=== PATIENT | female | born 1940 ===

== ENCOUNTER 2020-05-13 18:49 | Observation (INO) | payer MEDICARE, MEDICAID, SELFPAY ==
[2020-05-13] VITALS (12 sets, daily range): BP systolic 102–136; BP diastolic 44–106; PULSE 62–101; RESP 13–24; TEMP 35.7–37.3; O2SAT 93–96; BMI 41.7
--- NOTE | ~2020-05-13 | CT_ITS ---
EXAMINATION: CT chst ab pel madie mak wo DATE: 05/13/2020 20:39 INDICATION: Back pain, nausea and vomiting TECHNIQUE: Computed tomography (CT) of the chest, abdomen, and pelvis was performed without intraveno us contrast. The dose-length product was 1727.05 mGy-cm. COMPARISON: 07/31/2009 FINDINGS: CHEST CT: Mild respiratory motion and mild discoid atelectasis in the bilateral lower lobes. No pneumonia, pulm onary edema, pleural effusion or pneumothorax. Heart size is normal. Minimal pericardial effusion. De nse mitral annular calcification. Atherosclerotic coronary artery calcifications. Thoracic aorta is n ormal in caliber. No pathologically enlarged thoracic lymphadenopathy. Advanced right glenohumeral os teoarthritis. Severe cervical spondylosis. ABDOMEN/PELVIS CT: Small to moderate amount of ascites about the liver, spleen, right paracolic gutter and pelvis. Liver , gallbladder, spleen, pancreas, bilateral adrenal glands are normal. Mild bilateral renal atrophy wh ich may be related to age. Nonspecific small amount of fluid in the jejunum which could be seen with enteritis. No bowel obstruction or abnormal bowel wall thickening. Tip of a Colbert catheter is barely within the decompressed bladder. The uterus is not identified and has likely been surgically resected . No free intraperitoneal gas. No pathologically enlarged abdominal or pelvic lymphadenopathy. Mild b ilateral hip and moderate bilateral sacroiliac osteoarthritis. THORACIC AND LUMBAR SPINE: Mild upper thoracic levocurvature and mild kyphosis. Chronic mild anterior wedging at T7. No acute fr acture. Severe disc height loss at T7-T8, T10-T11 and T11-T12 and moderate disc height loss at the re maining thoracic levels. Posterior endplate osteophytes and ossification of the posterior longitudina l ligament at T7-T8 and T8-T9 resulting in mild central canal stenosis the former and moderate at the latter. There are bridging osteophytes at multiple levels in the thoracic spine consistent with diff use idiopathic skeletal hyperostosis (DISH). Multilevel moderate to severe bilateral thoracic facet o steoarthritis resulting in mild bilateral neural foraminal stenosis at the majority of the thoracic l evels. Mild lumbar dextroscoliosis. 4 mm anterolisthesis L4 on L5 and 4 mm retrolisthesis L5 on S1. Anterior spinal fusion at L3-L4. Remaining lumbar vertebral body heights are normal. Mild disc height loss at T12-L1. Moderate disc height loss at L4-L5 and severe disc height loss at L1-L2, L2-L3 and L5-S1. Mu ltilevel central canal stenosis resulting from combination of disc bulges and disc osteophyte complex es as well as multilevel severe hypertrophic facet osteoarthritis throughout the lumbar spine. The ce ntral canal stenosis is moderate to severe at L1-L2 and L4-L5, moderate at L2-L3 and L3-L4 and mild a t L5-S1. There is moderate neural foraminal stenosis on the throughout the left side of the lumbar sp ine and on the right at all but L2-L3. Chronic lucent likely hemangiomas at L3 and L4. IMPRESSION: 1. No acute cardiopulmonary disease. 2. Nonspecific small to moderate amount of ascites in the abdomen and pelvis which is of indeterminat e etiology. 3. Fluid in the nondilated jejunum. Correlate clinically for possible enteritis. 4. Severe cervical, thoracic and lumbar spondylosis. No acute spinal osseous abnormality. Reviewed, dictated and finalized at location H. AND GAS PRINCIPAL IMPRESSION: 1. No acute cardiopulmonary disease. 2. Nonspecific small to moderate amount of ascites in the abdomen and pelvis wh ich is of indeterminate etiology. 3. Fluid in the nondilated jejunum. Correlate clinically for possible enteritis . 4. Severe cervical, thoracic and lumbar spondylosis. No acute spinal osseous ab normality.
--- NOTE | 2020-05-13 19:19 | ECG_ITS ---
Measurements Intervals [employer] Rate: 66 P: 87 MI: 191 QRS: 64 QRSD: 85 T: 67 QT: 456 QTc: 478 Interpretive Statements SINUS RHYTHM BASELINE ARTIFACT- I, II, III, AVR, AVL, V3-V6 NORMAL ECG Electronically Signed On 05-14-2020 8:38:13 [employer]SWING OPERATOR by Edu Caldwell D.O.
--- NOTE | 2020-05-13 19:21 | ED.BACK ---
HPI - Back Pain/Injury General Chief Complaint: Back Pain/Injury Stated Complaint: back pain Time Seen by Provider: 05/13/20 19:16 History of Present Illness HPI Narrative: History limited by dementia 79 yo female w/ multiple medical problems presents to the ED for back pain and vomiting. She says that her back has been hurting all week. Unable to localize or provide details of the pain. Vomited once during transport. Initial BP for EMS was in the 80s systolic. Normal after 400 ml NS. She apparently tested positive for COVID-19 at some point, unclear when. Related Data Allergies Allergy/AdvReac Type Severity Reaction Status Date / Time Sulfa (Sulfonamide Allergy Unknown Verified 02/27/19 09:02 Antibiotics) Review of Systems Review of Systems: ROS unobtainable: Yes unobtainable due to mental status PMFSH Past Medical History Medical History (Updated 05/13/20 @ 22:17 by Guillaume Rashid MD) Dementia Diabetes Social History Social History (Updated 05/13/20 @ 22:17 by Guillaume Rashid MD) Living arrangements: detention Exam Const: General: alert, confusion and ill appearing Nutritional Appearance: obese Other: mild distress HENMT: Head: normal to inspection Resp: Effort & Inspection: normal respiratory effort Auscultation: clear to auscultation bilaterally Cardio: Rate: regular rate Rhythm: regular rhythm GI: Inspection: distended Other: diffuse tenderness Skin: General skin exam: normal color Neuro: General: moves all extremities Speech: normal speech Extrem: General: edema bilateral Course Vital Signs Vital signs: Vital Signs Pulse Rate 62 05/13/20 18:55 Respiratory Rate 20 05/13/20 18:55 Blood Pressure 112/53 L 05/13/20 18:55 Pulse Oximetry 93 05/13/20 18:55 Temperature 37.3 C 05/13/20 22:11 Pulse Rate 87 05/13/20 22:11 Respiratory Rate 14 05/13/20 22:11 Blood Pressure 105/55 L 05/13/20 22:11 Pulse Oximetry 94 05/13/20 22:11 MDM - Back Pain/Injury MDM Narrative Medical decision making narrative: UA consistent with infection. Given clinical presentation I believe that it is most likely pyelonephritis despite lack of findings on non-contrast CT. can't rule out colitis, so I will broaden antibiotic coverage to include GI infection. Differential Diagnosis Differential diagnosis: Likely pyelonephritis and other (aortic aneurys, spinal injury, kidney stone) Medical Records Attestation: I reviewed the patient's medical records. Lab Data Attestation: I reviewed the patient's lab results. Result diagrams: 05/13/20 19:26 05/13/20 19:26 Labs: Lab Results 05/13/20 05/13/20 05/13/20 Range/Units 19:26 19:26 20:08 WBC 19.8 H (4.5-10.0) K/mm3 RBC 5.26 (4.2-5.4) M/mm3 Hgb 14.7 (12.0-15.0) g/dL Hct 43.6 (37.0-47.0) % MCV 82.9 (80-100) fl MCH 27.9 (26-34) pg MCHC 33.7 (32-36) g/dl RDW 13.1 (11.5-14.5) % Plt Count 576 H (150-375) k/mm3 MPV 9.7 (7.4-10.4) fl Immature Gran % (Auto) 0.6 H (0-0.5) % Neut % (Auto) 88.3 H (45.5-73.1) % Lymph % (Auto) 4.3 L (18.3-44.2) % Coffee % (Auto) 5.3 (2.6-8.5) % Eos % (Auto) 1.1 (0-4.4) % Baso % (Auto) 0.4 (0.2-1.2) % Lymph # (Auto) 0.85 L (0.9-3.2) K/mm3 Coffee # (Auto) 1.0 H (0.1-0.6) K/mm3 Eos # (Auto) 0.2 (0-0.3) K/mm3 Baso # (Auto) 0.1 (0.0-0.1) K/mm3 Abs Immat Gran (auto) 0.11 H (0.00-0.031) K/mm3 Absolute Neuts (auto) 17.5 H (1.3-6.7) K/mm3 Absolute Nucleated RBC 0.0 (0.0-0.012) K/mm3 Nucleated RBC % 0.0 (0.0-0.2) % Sodium 131 L (137-145) mmol/L Potassium 5.0 (3.4-5.0) mmol/L Chloride 95 L (98-107) mmol/L Carbon Dioxide 21 L (22-30) mmol/L Anion Gap 15 (8-16) mmol/L BUN 53 H (7-17) mg/dL Creatinine 1.70 H (0.7-1.0) mg/dL Estim Creat Clear Calc 29 ml/min Estimated GFR 29 L (59 - ) Glucose 228 H (65-105) mg/dL
[2020-05-13 19:33] LABS: Basophils Absolute Auto 0.1 K/mm3 (0.0-0.1); Basophils Percent Auto 0.4 % (0.2-1.2); Eosinophils Absolute Auto 0.2 K/mm3 (0-0.3); Eosinophils Percent Auto 1.1 % (0-4.4); Hematocrit 43.6 % (37.0-47.0); Hemoglobin 14.7 g/dL (12.0-15.0); Immature Granulocyte Absolute 0.11 K/mm3 (0.00-0.031); Immature Granulocyte Percent A 0.6 % (0-0.5); Lymphocytes Absolute Auto 0.85 K/mm3 (0.9-3.2); Lymphocytes Percent Auto 4.3 % (18.3-44.2); Mean Corpuscular HGB Conc 33.7 g/dl (32-36); Mean Corpuscular Hemoglobin 27.9 pg (26-34); Mean Corpuscular Volume 82.9 fl (80-100); Mean Platelet Volume 9.7 fl (7.4-10.4); Monocytes Percent Auto 5.3 % (2.6-8.5); Neutrophils Absolute Auto 17.5 K/mm3 (1.3-6.7); Neutrophils Percent Auto 88.3 % (45.5-73.1); Platelet Count Result 576 k/mm3 (150-375); Red Blood Count 5.26 M/mm3 (4.2-5.4); Red Cell Distribution Width 13.1 % (11.5-14.5); White Blood Count 19.8 K/mm3 (4.5-10.0)
[2020-05-13 19:45] LABS: Alanine Aminotransferase 21 U/L (4-35); Alkaline Phosphatase 64 U/L (38-126); Anion Gap 15 mmol/L (8-16); Aspartate Amino Transferase 24 U/L (14-36); Blood Urea Nitrogen 53 mg/dL (7-17); Calcium 9.3 mg/dL (8.4-10.2); Carbon Dioxide 21 mmol/L (22-30); Chloride 95 mmol/L (98-107); Estimated CRCL calculation 29 ml/min; Estimated Glomerular Filt Rate 29; Glucose 228 mg/dL (65-105); Lipase 815 U/L (23-300); Sodium 131 mmol/L (137-145)
[2020-05-13] MEDS: fentaNYL CITRATE INJ (*CRX) 100 MCG/2 ML VIAL 50 MCG IV PUSH (19:51)
[2020-05-13 20:21] LABS: Add Urine Microscopic? YES; Appearance Urine Cloudy (Clear); Bacteria Urine Trace /hpf; Bilirubin Urine Negative (Negative); Blood Urine Negative (Negative); Color Urine Yellow (Yellow); Glucose Urine UA Negative (Negative); Ketones Urine Negative (Negative); Leukocyte Esterase Ur 2+ LEU/UL (Negative); Mucus Urine Rare /lpf; Nitrate Urine Negative (Negative); Protein Urine 1+ mg/dL (Negative); RBC Urine 0-2 /hpf (0-2); Specific Grav Ur 1.012 (1.001-1.035); Squamous Epithelial Cell Urine Rare /hpf (Few); Urobilinogen Urine Negative mg/dL (<2.0); WBC Urine >75 /hpf
--- NOTE | 2020-05-13 20:34 | PC.NURSE ---
Report from ANNABELLE Vergara received. Patient currently in radiology.
[2020-05-13] MEDS: MORPHINE SULFATE (*CRX) 4 MG/ML INJ IV PUSH (21:31)
[2020-05-13 22:14] LABS: Lactic Acid Reflex 4.6 mmol/L (0.7-2.1)
[2020-05-13] MEDS: SODIUM CHLORIDE 0.9% IV 1,000 ML 999 ML IV CONT (22:24)
--- NOTE | 2020-05-13 23:15 | ADMGEN ---
This patient, Elizabeth Giron, was admitted to 2 Medical Room 259-. Patient/family oriented to hospital policies and general routines including ID bracelet, bed and alarms, visiting hours, pain management, procedures, bathroom and other care routines, personal items, smoking policy, room service/diet, and visiting hours. Information on how to activate the Rapid Response Team has been discussed. Patient/Family are encouraged to report perceived risks to care and to ask questions if they do not understand what they are told or what they should do.
[2020-05-13] MEDS: LACTATED RINGERS 1,000 ML 75 ML IV CONT (23:32)
--- NOTE | 2020-05-13 23:50 | PM.IMHP ---
H&P: HPI History of Present Illness Date/Time: 05/13/20 23:50 Chief complaint: severe back pain++ Narrative: This is a pleasant 79-year-old obese Diabetic female who recently had jenkins virus and now presented to our hospital today with a complaint of severe diffuse back pain extending from the top of her back bilaterally all the way down to her waist. She reports that she has had this severe back pain for months and that this is not new. Today she was sent to the hospital because her back pain was intractable and debilitating. She denies seeing any healthcare providers for her chronic back pain and denies any imaging studies that have been done for her back pain. Associated symptoms include nausea and vomiting today. She also denies any numbness or tingling going down her legs, bowel or bladder incontinence, or lower extremity weakness. she denies any recent fevers, chills, neck pain, chest pain, shortness of breath, cough, diarrhea, dysuria, hematuria, or rectal bleeding. In the ER tonight the patient underwent CT Chest/Abd/Pelvis demonstrated nonspecific small to moderate amount of ascites in the abdomen and pelvis which is of indeterminate etiology and fluid in the nondilated jejunum. Severe cervical, thoracic and lumbar spondylosis. No acute spinal osseous abnormality. Routine labs demonstrated leukocytosis, acute renal failure, and an abnormal urinalysis. The patient was treated with IV narcotic medications and Zosyn IV. Review of Systems Review of Systems: All systems reviewed & are unremarkable except as noted in HPI and below PMFSH Past Medical History Medical History Chronic back pain Dementia Diabetes Hyperlipidemia Hypothyroidism Family History Family History Other Hypertension Social History Social History Smoking status: Never smoker Second hand tobacco smoke exposure: No Alcohol intake: never Substance use: never Substance use type: does not use Living arrangements: [facility] Comments The patient denies any previous surgeries. Meds Home Medications and Allergies Home Medications Medication Instructions Recorded Confirmed Type acetaminophen 650 mg PO TID 05/13/20 05/13/20 History alprazolam 0.25 mg PO BID 05/13/20 05/13/20 History amlodipine 2.5 mg PO DAILY 05/13/20 05/13/20 History aspirin 81 mg PO DAILY 05/13/20 05/13/20 History atorvastatin 70 mg PO HS 05/13/20 05/13/20 History buspirone 7.5 mg PO TID 05/13/20 05/13/20 History calcium carbonate-vitamin D3 1 tablet PO BID 05/13/20 05/13/20 History [Calcium 600 with Vitamin D3] carvedilol 12.5 mg PO BID 05/13/20 05/13/20 History dexamethasone 4 mg PO BID 05/13/20 05/13/20 History escitalopram oxalate 10 mg PO DAILY 05/13/20 05/13/20 History ferrous sulfate 325 mg PO BID 05/13/20 05/13/20 History furosemide 60 mg PO DAILY 05/13/20 05/13/20 History levothyroxine 75 mcg PO DAILY 05/13/20 05/13/20 History memantine 28 mg PO DAILY 05/13/20 05/13/20 History potassium chloride 10 meq PO DAILY 05/13/20 05/13/20 History rivastigmine tartrate 3 mg PO DAILY 05/13/20 05/13/20 History Allergies Allergy/AdvReac Type Severity Reaction Status Date / Time Sulfa (Sulfonamide Allergy Unknown Verified 02/27/19 09:02 Antibiotics) Vital Signs Vital Signs - 24 hr 05/13/20 18:55 05/13/20 19:59 05/13/20 20:00 Temperature Pulse Rate 62 67 68 Respiratory Rate 20 22 H 16 Blood Pressure 112/53 L 123/71 Pulse Oximetry 93 95 96 05/13/20 20:03 05/13/20 20:11 05/13/20 20:39 Temperature Pulse Rate 69 77 80 Respiratory Rate 18 21 H 24 H Blood Pressure 123/106 H 133/85 110/84 Pulse Oximetry 94 95 05/13/20 20:40 05/13/20 21:22 05/13/20 22:01 Temperature 37.3 C Pulse Rate 79 80 Respiratory Rate 19 16 Blood Pressure 136/88 Pulse Oximet
[2020-05-14 00:55] LABS: Reflex Lactic Acid Yes or No Add Lactic
[2020-05-14 01:14] LABS: Glucose Point of Care 190 (65-105)
[2020-05-14 01:19] LABS: Lactic Acid 3.8 mmol/L (0.7-2.1)
[2020-05-14 05:39] LABS: Hematocrit 44.9 % (37.0-47.0); Hemoglobin 14.3 g/dL (12.0-15.0); Mean Corpuscular HGB Conc 31.8 g/dl (32-36); Mean Corpuscular Hemoglobin 27.5 pg (26-34); Mean Corpuscular Volume 86.3 fl (80-100); Mean Platelet Volume 9.9 fl (7.4-10.4); Platelet Count Result 411 k/mm3 (150-375); Red Cell Distribution Width 13.5 % (11.5-14.5); White Blood Count 9.8 K/mm3 (4.5-10.0)
[2020-05-14 05:55] LABS: Anion Gap 16 mmol/L (8-16); Blood Urea Nitrogen 61 mg/dL (7-17); Calcium 8.1 mg/dL (8.4-10.2); Carbon Dioxide 17 mmol/L (22-30); Chloride 99 mmol/L (98-107); Estimated CRCL calculation 22 ml/min; Estimated Glomerular Filt Rate 21; Glucose 128 mg/dL (65-105); Magnesium 2.1 mg/dL (1.6-2.3); Potassium 5.2 mmol/L (3.4-5.0); Sodium 132 mmol/L (137-145)
[2020-05-14 05:56] LABS: Glucose Point of Care 122 (65-105)
[2020-05-14 06:00] VITALS: BP 106/51; PULSE 85; RESP 20; TEMP 36.3; O2SAT 92
[2020-05-14 06:25] LABS: Band Neutrophils Percent 12 % (0-6); Large Platelets Present; Lymphocytes Absolute Manual 0.78 K/mm3 (1.1-4.5); Monocytes Absolute Manual 0.19 K/mm3 (0.1-0.90); Monocytes Percent Manual 2 % (3-9); Neutrophils Absolute Manual 8.82 K/mm3 (1.7-7.2); Neutrophils Percent Manual 78 % (46-73); Platelet Estimate Adequate (Adequate); Total Cells Counted 100
--- NOTE | 2020-05-14 06:40 | PM.DDS ---
Discharge Sum: Prov Provider Primary care physician: George Garcia MD Admitting provider: Rajeev Apple MD Discharge Sum: Diag Contributing Factors (1) Severe sepsis: (2) UTI (urinary tract infection): (3) Elevated lactic acid level: (4) Acute renal failure: Discharge Sum: Summary Date and Time Date of admission: 05/13/20 21:31 Date of : 05/14/20 Time of : 06:30 Summary Details: This is a pleasant 79-year-old obese Diabetic female who recently had coronavirus and now presented to our hospital today with a complaint of severe diffuse back pain extending from the top of her back bilaterally all the way down to her waist. She reports that she has had this severe back pain for months and that this is not new. Today she was sent to the hospital because her back pain was intractable and debilitating. She denies seeing any healthcare providers for her chronic back pain and denies any imaging studies that have been done for her back pain. Associated symptoms include nausea and vomiting today. She also denies any numbness or tingling going down her legs, bowel or bladder incontinence, or lower extremity weakness. she denies any recent fevers, chills, neck pain, chest pain, shortness of breath, cough, diarrhea, dysuria, hematuria, or rectal bleeding. In the ER tonight the patient underwent CT Chest/Abd/Pelvis demonstrated nonspecific small to moderate amount of ascites in the abdomen and pelvis which is of indeterminate etiology and fluid in the nondilated jejunum. Severe cervical, thoracic and lumbar spondylosis. No acute spinal osseous abnormality. Routine labs demonstrated leukocytosis, acute renal failure, and an abnormal urinalysis. The patient was treated with IV narcotic medications and Zosyn IV. The patient was found not breathing around 06:30 am this morning. CODE BLUE was called overheard. On my arrival to bedside the patient is not breathing, has no heart sounds, has fixed and dilated pupils, and has no palpable pulse. Code status was confirmed to be DO NOT RESUSCITATE. The patient was pronounced at 6:32 am. Additional Data Confirmation of as documented by pronouncing clinician: no pulse, no respirations, no heart sounds and pupils fixed and dilated Attending physician: Rajeev Apple MD
--- NOTE | 2020-05-14 06:51 | PC.NURSE ---
While going into the patients room the patient was found to be unresponsive at 06:30. no pulse, no respirations, charge nurse and Rajeev Apple were notified. Bob notified family of .
== END 2020-05-14 08:39 | disposition expired ==
LOC: ANHED 21:15 → ANH2MED 22:21
PROVIDERS: Emergency Medicine; Admitting Provider Family Medicine; Emergency Provider Emergency Medicine; PCP Internal Medicine; Visit Provider Family Medicine
DX: A41.9 Sepsis, unspecified organism (principal); R65.20 Severe sepsis without septic shock; Z86.19 Personal history of other infectious and parasitic diseases; N39.0 Urinary tract infection, site not specified; N17.9 Acute kidney failure, unspecified; M47.812 Spondylosis without myelopathy or radiculopathy, cervical region; M47.816 Spondylosis without myelopathy or radiculopathy, lumbar region; M47.814 Spondylosis without myelopathy or radiculopathy, thoracic region; Z66 Do not resuscitate; R18.8 Other ascites; R11.2 Nausea with vomiting, unspecified; R79.89 Other specified abnormal findings of blood chemistry; R74.8 Abnormal levels of other serum enzymes; D47.3 Essential (hemorrhagic) thrombocythemia; E11.9 Type 2 diabetes mellitus without complications; E03.9 Hypothyroidism, unspecified; E66.9 Obesity, unspecified; E78.5 Hyperlipidemia, unspecified; F03.90 Unspecified dementia, unspecified severity, without behavioral disturbance, psychotic disturbance, mood disturbance, and anxiety; Z68.41 Body mass index [BMI] 40.0-44.9, adult; Z79.4 Long term (current) use of insulin
CPT/HCPCS: 36415; 51701; 71250; 72128; 72131; 74176; 80048; 80053; 81001; 83605; 83690; 83735; 85025; 87040; 87077; 87086; 87088; 87186; 93005; 96365; 96367; 96375; 99285; G0378; J0131; J2270; J2543; J3010; J7030; J7120